=== PATIENT | male | born 1990 | race Caucasian/White ===

== ENCOUNTER → 2019-06-12 11:24 | Outpatient (CLI) | payer OTHER, SELFPAY ==
[2019-06-12 12:54] LABS: Cholesterol 167 mg/dL (140-199); HDL Cholesterol 47 mg/dL (40-60); LDL Cholesterol Calculated 106 mg/dL (<100); Triglycerides 72 mg/dL (35-150)
[2019-06-12 13:13] LABS: Vitamin D 25 Hydroxy (D3) 25.1 ng/mL (30.0-100.0)
== END ==
PROVIDERS: PCP Family Medicine; Referring Provider Family Medicine; Visit Provider Family Medicine
DX: Z82.49 Family history of ischemic heart disease and other diseases of the circulatory system (principal)
CPT/HCPCS: 36415; 80061; 82306

== ENCOUNTER → 2021-02-12 16:14 | Outpatient (CLI) | payer OTHER, SELFPAY ==
[2021-02-12 17:44] LABS: Influenza A - CEPHEID Flu A NEGATIVE (NEGATIVE); Influenza B - CEPHEID Flu B NEGATIVE (NEGATIVE)
[2021-02-12 17:56] LABS: COVID19 -Nasal RAPID Negative (Negative)
== END ==
PROVIDERS: PCP Family Medicine; Visit Provider Nurse Practitioner
DX: Z20.822 Contact with and (suspected) exposure to COVID-19 (principal); J06.9 Acute upper respiratory infection, unspecified; J31.2 Chronic pharyngitis
CPT/HCPCS: 87070; 87077; 87147; 87502; 87635

== ENCOUNTER 2021-02-16 23:17 | Emergency (ER) | payer OTHER, SELFPAY ==
[2021-02-16 23:19] VITALS: BP 135/72; PULSE 105; RESP 20; TEMP 36.9; O2SAT 95; BMI 23.1
--- NOTE | 2021-02-16 23:36 | ED.GENADULT ---
HPI - General Adult General Chief complaint: Shortness of Breath/Dyspnea Stated complaint: trouble breathing x5 days Time Seen by Provider: 02/16/21 23:20 Source: patient Mode of arrival: Ambulatory Limitations: no limitations History of Present Illness HPI narrative: 31-year-old male with history of asthma who is here for evaluation of problems breathing for the past 5 days. He was recently seen in the walk-in clinic. Was diagnosed with bronchitis. Was placed on antibiotics. He has been taking it as directed. He is unvaccinated against COVID-19 Related Data Previous Rx's Medication Instructions Recorded albuterol sulfate 90 mcg/actuation 2 puff INHALATION QID PRN #8 gram 06/12/19 aerosol inhaler epinephrine 0.3 mg/0.3 mL 0.3 ml IM ONCE #1 each 08/31/19 injection, auto-injector (EpiPen 2-Maged) ondansetron HCl 4 mg tablet 4 mg PO Q8H PRN #20 tab 09/12/20 tamsulosin 0.4 mg capsule 0.4 mg PO DAILY PRN #14 cap 09/12/20 tramadol 100 mg tablet 100 mg PO BID PRN #20 tab 09/12/20 prednisone 50 mg tablet 50 mg PO DAILY #5 tab 09/17/20 clonazepam 1 mg tablet See Rx Instructions .ROUTE 12/20/20 .COMPLEX #30 tab fluticasone propionate 44 2 puff INHALATION BID #1 unit 12/20/20 mcg/actuation HFA aerosol inhaler (Flovent HFA) amoxicillin 875 mg-potassium 1 tab PO BID 10 Days #20 tab 02/12/21 clavulanate 125 mg tablet (Augmentin) prednisone 20 mg tablet 20 mg PO DAILY 3 Days #3 tab 02/17/21 Allergies Allergy/AdvReac Type Severity Reaction Status Date / Time No Known Drug Allergies Allergy Verified 02/12/21 16:11 Review of Systems ENT Ears, Nose, Mouth, and Throat: Reports otalgia, Reports sinus pain and Reports sinus pressure Cardiovascular Cardiovascular: Denies chest pain and Reports dyspnea Respiratory Respiratory: Reports cough, Reports dyspnea and Reports wheezing Integumentary/Breasts Skin/Breast: Reports system reviewed and no additional complaints, except as documented Allergic/Immunologic Allergic/Immunologic: Reports wheezing Patient History Medical History Anxiety (~2014) Asthma (~1991) Cannabis use disorder, moderate, dependence Chicken pox (~1998) Eczema (~1988) Family history of heart disease Generalized anxiety disorder Herpes (~2001) Insomnia disorder with non-sleep disorder mental comorbidity Kidney stones MRSA (methicillin resistant Staphylococcus aureus) (~2012) Puncture wound Surgical History H/O wisdom tooth extraction Family History Father Hypertension Mother No problems noted. Grandfather Hyperlipidemia Hypertension Cancer Diabetes mellitus Stroke Grandfather Heart disease Grandmother Cancer Leukemia Social History Smoking Status: Former smoker alcohol intake: never substance use type: marijuana Smoking Status: Former smoker alcohol intake frequency: 0-2 drinks per day Substance Use Type: marijuana Exam Initial Vital Signs Initial Vital Signs: Vital Signs Temperature 98.5 F 02/16/21 23:19 Pulse Rate 105 H 02/16/21 23:19 Respiratory Rate 20 02/16/21 23:19 Blood Pressure 135/72 02/16/21 23:19 Pulse Oximetry 95 02/16/21 23:19 Const General: cooperative, comfortable and well developed HENID Head: normal to inspection and normocephalic Ears: other (Bilateral tympanic membranes bulging) Resp Other: No respiratory distress does have decreased lung sounds and wheezing bilaterally with left being greater than right Skin General: no rashes or lesions noted Neuro General: patient alert, patient awake and patient oriented x3 Extrem General: normal to inspection and capillary refill normal Psych Appearance: grossly normal and well kempt Course Orders Ordered: ED Orders 02/16/21 23:20 COVID19 -Nasal swab/Pre-Proc Stat 02/16/21 23:52 RT Consult Eval and Treat Now 02/17/21 00:10 Sputum Culture Stat Discontinued Medications Albuterol/Ipratropium (Albuterol/Ipratropium 3 Ml Ampul) 3 ml INH NOW ONE Stop: 02/16/21 23:53 Last Admin: 02/17/21 00:03 Dose: 3 ml Documented by: MITCHEL Albuterol/Ipratropium (Albuterol/Ipratropium 3 Ml Ampul) 3 ml INH NOW ONE Stop: 02/17/21 00:15 Last Admin: 02/17/21 00:25 Dose: 3 ml Documented by: MITCHEL Albuterol/Ipratropium (Albuterol/Ipratropium 3 Ml Ampul) 3 ml INH NOW ONE Stop: 02/17/21 00:42 Last Admin: 02/17/21 00:51 Dose: 3 ml Documented by: MITCHEL Prednisone (Prednisone 20 Mg Tablet) 20 mg PO NOW ONE Stop: 02/16/21 23:53 Last Admin: 02/17/21 00:00 Dose: 20 mg Documented by: PEGGY Vital Signs Vital signs: Vital Signs - 8 hr 02/16/21 23:19 02/17/21 00:04 02/17/21 00:25 Temperature 98.5 F Pulse Rate 105 H 78 69 Respiratory Rate 20 18 15 Blood Pressure 135/72 Pulse Oximetry 95 97 96 02/17/21 00:51 Temperature Pulse Rate 67 Respiratory Rate 15 Blood Pressure Pulse Oximetry 97 Medical Decision Making Lab Data Labs: Lab Results 02/16/21 Range/Units 23:20 SARS-CoV-2 (PCR) Negative (Negative) MDM Narrative Medical decision making narrative: Afebrile, COVID is negative, is already on antibiotics that we treat any respiratory infection. He does have bilateral bulging tympanic membranes. Is wheezing bilaterally. This improved with 3 DuoNebs here in the ER. Will also give a prescription for steroids. No indication to change in his antibiotics. Was given return precautions and follow-up instructions. He expressed understanding and agreement. Discharge Plan Departure Patient Disposition: Home Clinical Impression: Asthma with exacerbation, Cough Instructions: Cough Activity Restrictions/Additional Instructions: I recommend you continue all of the medications as directed to include your antibiotics that you have already started. Contact your primary provider for follow-up. Return to the emergency department for any new or worsening symptoms Prescriptions: New prednisone 20 mg tablet 20 mg PO DAILY 3 Days Qty: 3 RF: 0 No Action prednisone 50 mg tablet 50 mg PO DAILY Qty: 5 RF: 0 amoxicillin-pot clavulanate [Augmentin] 875-125 mg tablet 1 tab PO BID 10 Days Qty: 20 RF: 0 epinephrine [EpiPen 2-Maged] 0.3 mg/0.3 mL auto-injector 0.3 ml IM ONCE Qty: 1 RF: 3 ondansetron HCl 4 mg tablet 4 mg PO Q8H PRN (Reason: nausea and vomiting) Qty: 20 RF: 0 tramadol 100 mg tablet 100 mg PO BID PRN (Reason: pain) Qty: 20 RF: 0 tamsulosin 0.4 mg capsule 0.4 mg PO DAILY PRN (Reason: kidney stones) Qty: 14 RF: 0 clonazepam 1 mg tablet See Rx Instructions .ROUTE .COMPLEX Qty: 30 RF: 0 Flovent HFA 44 mcg/actuation HFA aerosol inhaler 2 puff INHALATION BID Qty: 1 RF: 5 albuterol sulfate 90 mcg/actuation HFA aerosol inhaler 2 puff INHALATION QID PRN (Reason: shortness of breath or wheezing) Qty: 8 RF: 3 Referrals: Sumeet Montoya DO [Primary Care Provider] - Stand Alone Forms: Work Release Note
[2021-02-16 23:44] LABS: COVID19 -Nasal RAPID Negative (Negative)
[2021-02-17] MEDS: predniSONE 20 MG TABLET PO
[2021-02-17] MEDS: ALBUTEROL/IPRATROPIUM 3 ML AMPUL INH ×3 (00:03→00:51)
[2021-02-17 00:04] VITALS: PULSE 78; RESP 18; O2SAT 97
[2021-02-17 00:25] VITALS: PULSE 69; RESP 15; O2SAT 96
[2021-02-17 00:51] VITALS: PULSE 67; RESP 15; O2SAT 97
[2021-02-17 01:14] VITALS: BP 131/74; PULSE 77; RESP 17; O2SAT 94
== END 2021-02-17 01:14 | disposition home or self-care (01) ==
PROVIDERS: Emergency Provider Emergency Medicine; PCP Family Medicine
DX: J45.901 Unspecified asthma with (acute) exacerbation (principal); R05.9 Cough, unspecified; Z20.822 Contact with and (suspected) exposure to COVID-19
CPT/HCPCS: 87070; 87205; 87635; 94640; 99283; C9803

== ENCOUNTER → 2022-08-03 09:43 | Outpatient (CLI) | payer OTHER, MEDICAID, SELFPAY ==
[2022-08-03 10:22] LABS: Add Manual Diff / Slide Review NO; Basophils Absolute Auto 0 /uL (0-100); Basophils Percent Auto 0.3 % (0-2); Eosinophils Absolute Auto 800 /uL (0-450); Eosinophils Percent Auto 12.5 % (2-4); Hematocrit 44.9 % (41-53); Hemoglobin 15.7 g/dL (13.5-17.5); Lymphocytes Absolute Auto 2000 /uL (1100-4500); Lymphocytes Percent Auto 30.4 % (25-40); Mean Corpuscular HGB Conc 34.9 % (30-36); Mean Corpuscular Hemoglobin 31.4 PG (26-34); Mean Corpuscular Volume 89.9 fL (80-100); Monocytes Absolute Auto 600 /uL (0-900); Monocytes Percent Auto 9.3 % (3-14); Neutrophils Absolute Auto 3100 /uL (1500-7000); Neutrophils Percent Auto 47.5 % (50-75); Platelet Count 244 X10^3/uL (150-400); Red Blood Cell Count 4.99 X10^6/uL (4.5-5.9); Red Cell Distribution Width 12.4 % (11.6-14.8); White Blood Cell Count 6.4 X10^3/uL (4.5-11.0)
[2022-08-03 10:41] LABS: Alanine Aminotransferase 17 IU/L (<50); Albumin 4.1 g/dL (3.5-5.0); Albumin Globulin Ratio 1.3 (1.0-2.8); Alkaline Phosphatase 77 U/L (38-126); Aspartate Aminotransferase 19 IU/L (17-59); BUN Creatinine Ratio 15.1 (6-22); Bilirubin Total 0.3 mg/dL (0.2-1.3); Blood Urea Nitrogen 13 mg/dL (9-20); Calcium 9.3 mg/dL (8.4-10.2); Carbon Dioxide 24 mmol/L (22-32); Chloride 108 mmol/L (98-107); Cholesterol 137 mg/dL (140-199); Estimated Glomerular Filt Rate > 60 mL/min (>60); Globulin 3.2 g/dL (1.7-4.1); Glucose 119 mg/dL (70-100); HDL Cholesterol 44 mg/dL (40-60); HEMOLYSIS 15 (0-50); LDL Cholesterol Calculated 77 mg/dL (<100); Potassium 4.6 mmol/L (3.4-5.1); Sodium 138 mmol/L (137-145); Total Protein 7.3 g/dL (6.3-8.2); Triglycerides 80 mg/dL (35-150)
[2022-08-03 11:22] LABS: Vitamin D 25 Hydroxy (D3) 43.7 ng/mL (30.0-100.0)
[2022-08-03 11:28] LABS: Vitamin B12 460 pg/mL (239-931)
[2022-08-03 11:36] LABS: TSH w/ Reflex to FT4 0.95 uIU/mL (0.47-4.68)
[2022-08-09 19:26] LABS: Percent Free Testosterone 2.14 % (1.50-4.20); Testosterone Free 14.13 ng/dL (5.00-21.00); Testosterone Total 660.4 ng/dL (264.0-916.0)
== END ==
PROVIDERS: PCP Family Medicine; Referring Provider Family Medicine; Visit Provider Family Medicine
DX: F32.A Depression, unspecified (principal); F41.1 Generalized anxiety disorder; R53.83 Other fatigue
CPT/HCPCS: 36415; 80053; 80061; 82306; 82607; 84402; 84403; 84443; 85025

== ENCOUNTER → 2023-02-04 12:38 | Outpatient (CLI) | payer OTHER, MEDICAID, SELFPAY ==
[2023-02-04 14:22] LABS: HEMOLYSIS 18 (0-50); Iron 59 ug/dL (49-181)
[2023-02-04 14:27] LABS: C-Reactive Protein Quant 0.8 mg/dL (<1.0)
[2023-02-04 14:32] LABS: Percent Iron Saturation 18 % (20-50); Total Iron Binding Capacity 319 ug/dL (261-462); Transferrin 224 mg/dL (206-381)
[2023-02-04 14:58] LABS: Ferritin 66 ng/mL (18-464)
== END ==
PROVIDERS: PCP Family Medicine; Referring Provider Pediatrics; Visit Provider Pediatrics
DX: D50.9 Iron deficiency anemia, unspecified (principal); G25.81 Restless legs syndrome
CPT/HCPCS: 36415; 82728; 83540; 83550; 86140

== ENCOUNTER → 2024-02-24 16:41 | Outpatient (CLI) | payer OTHER, MEDICAID, SELFPAY | PROVIDERS: PCP Family Medicine; Visit Provider Physician Assistant Medical | DX: J34.89 Other specified disorders of nose and nasal sinuses (principal); J01.01 Acute recurrent maxillary sinusitis | CPT/HCPCS: 87070; 87880 ==